=== PATIENT | female | born 1955 | race Caucasian/White ===

== ENCOUNTER 2022-03-25 13:05 | Emergency (ER) | payer MEDICARE ==
[~2022-03-25] VITALS: Ht 170.2 cm; Wt 80.0 kg
[2022-03-25] MEDS ORDERED: IV NORMAL SALINE 1000ML BAG 1,000 ML IV ONE (14:15)
[2022-03-25] MEDS ORDERED: FAMOTIDINE 20 MG/2 ML VIAL IVP ONE (14:15)
[2022-03-25] MEDS ORDERED: ONDANSETRON PF 4 MG/2 ML VIAL. IVP ONE (14:15)
[2022-03-25] MEDS ORDERED: fentaNYL PF VIAL 100 MCG/2 ML VIAL IV PRN (14:15)
[2022-03-25 14:48] LABS: BASO # 0.1 x10^3/uL (0.0-0.2); BASO % 1 % (0-3); EOS # 0.1 x10^3/uL (0.0-0.7); EOS % 1 % (0-3); HEMATOCRIT 43.5 % (36.0-47.0); HEMOGLOBIN 14.6 g/dL (12.0-15.5); LYMPH # 1.1 x10^3/uL (1.0-4.8); LYMPH % 19 % (24-48); MEAN CORPUSCULAR HEMOGLOBIN 32 pg (25-35); MEAN CORPUSCULAR HGB CONC 34 g/dL (31-37); MEAN CORPUSCULAR VOLUME 96 fL (79-100); MONO # 0.4 x10^3/uL (0.0-1.1); MONO % 8 % (0-9); NEUT # 4.2 x10^3/uL (1.8-7.7); NEUT % 71 % (31-73); PLATELET COUNT 300 x10^3/uL (140-400); RED BLOOD COUNT 4.52 x10^6/uL (3.50-5.40); RED CELL DISTRIBUTION WIDTH 14.3 % (11.5-14.5); WHITE BLOOD COUNT 5.9 x10^3/uL (4.0-11.0)
[2022-03-25 14:54] LABS: HYALINE CASTS, URINE FEW /HPF
[2022-03-25 14:54] LABS: CALCIUM 8.3 mg/dL (8.5-10.1); GFR 55.5; POTASSIUM 3.8 mmol/L (3.5-5.1)
[2022-03-25 14:55] LABS: BACTERIA,URINE 0 /HPF (0-FEW); WBC,URINE TNTC /HPF (0-4)
[2022-03-25 15:00] LABS: ALBUMIN 3.9 g/dL (3.4-5.0); ALBUMIN/GLOBULIN RATIO 1.1 (1.0-1.7); MAGNESIUM 1.9 mg/dL (1.8-2.4); TOTAL BILIRUBIN 0.3 mg/dL (0.2-1.0); TOTAL PROTEIN 7.5 g/dL (6.4-8.2)
[2022-03-25] MEDS ORDERED: cefTRIAXone IV Push 1 GM VIAL. IVP ONE (15:45)
[2022-03-25 15:52] VITALS: BP 116/65
--- NOTE | 2022-03-25 15:59 | RAD ---
CT ABDOMEN+PELVIS WO History: Right lower quadrant abdominal pain for weeks Comparison: None. Technique: CT abdomen pelvis without contrast. Findings: The lung bases are clear. The liver, gallbladder, pancreas, spleen, adrenal glands, and kidneys are u nremarkable. The stomach and small bowel are within normal limits. No evidence of small bowel obstruction. The roshan endix is not definitively identified. Flocculated dense material is present throughout the distal sma ll bowel and colon, likely ingested medication no colonic wall thickening or pericolonic inflammatory changes. The bladder is decompressed and unremarkable. Uterus and adnexa are unremarkable. No intra-abdominal free air or free fluid. There are shotty mesenteric lymph nodes without enlarged adenopathy. The unen hanced vasculature demonstrates mild atherosclerotic calcifications. Soft tissues are unremarkable. A dvanced degenerative changes in the lumbar spine with multilevel facet hypertrophy and mild anterolis thesis of L4 on L5. Multilevel degenerative disc space narrowing. Impression: 1. No acute findings in the abdomen and pelvis. ------ Exposure: One or more of the following individualized dose reduction techniques were utilized for thi s examination: 1. Automated exposure control 2. Adjustment of the mA and/or kV according to patient size 3. Use of iterative reconstruction technique. Electronically signed by: Karl Johnson MD (03/25/2022 2:42 PM) [id number]
[2022-03-25] MEDS ORDERED: CEPH500T PO (16:37)
[2022-03-25] MEDS ORDERED: DICY20TA PO (16:37)
--- NOTE | 2022-03-25 16:38 | PHYS DOC ---
Past Medical History Additional Past Medical Histor: covid; shinglfranko Past Surgical History: Appendectomy Additional Past Surgical Histo: partial thyroid; bilateral knee Smoking Status: Never Smoker Alcohol Use: Occasionally General Adult EDM: Chief Complaint: ABDOMINAL PAIN HPI: HPI: Patient is a 66 year old female with history of appendectomy presenting to the ED today complaining of lower abdominal cramping specifically on the right side as well as intermittent episodes of diarrhea for 2 months. Patient denies any fever. Denies any bloody stools. Denies any nausea, vomiting. Review of Systems: Review of Systems: Constitutional: Denies fever or chills. [] Eyes: Denies change in visual acuity. [] HENT: Denies nasal congestion or sore throat. [] Respiratory: Denies cough or shortness of breath. [] Cardiovascular: Denies chest pain or edema. [] GI: Reports lower abdominal cramping specifically on the right, diarrhea, d enies any nausea or vomiting : Denies dysuria. [] Musculoskeletal: Denies back pain or joint pain. [] Integument: Denies rash. [] Neurologic: Denies headache, focal weakness or sensory changes. [] Psychiatric: Denies depression or anxiety. [] Heart Score: C/O Chest Pain: N/A Risk Factors: Risk Factors: DM, Current or recent (<one month) smoker, HTN, HLP, family history of CAD, obesity. Risk Scores: Score 0 - 3: 2.5% MACE over next 6 weeks - Discharge Home Score 4 - 6: 20.3% MACE over next 6 weeks - Admit for Clinical Observation Score 7 - 10: 72.7% MACE over next 6 weeks - Early Invasive Strategies Current Medications: Current Medications Medications (Trade) Dose Ordered Sig/Rosanne Start Time Stop Time Status Last Admin Dose Admin Ceftriaxone Sodium (Rocephin) 1 gm 1X ONCE 03/25/22 15:45 03/25/22 15:47 DC 03/25/22 15:53 1 GM Famotidine (Pepcid Vial) 20 mg 1X ONCE 03/25/22 14:15 03/25/22 14:16 DC 03/25/22 14:37 20 MG Fentanyl Citrate (Fentanyl 2ml Vial) 50 mcg PRN Q15MIN PRN 03/25/22 14:15 03/26/22 14:14 03/25/22 14:38 50 MCG Ondansetron HCl (Zofran) 4 mg 1X ONCE 03/25/22 14:15 03/25/22 14:16 DC 03/25/22 14:37 4 MG Sodium Chloride 1,000 ml @ 1,000 mls/hr 1X ONCE 03/25/22 14:15 03/25/22 15:14 DC 03/25/22 14:37 1,000 MLS/HR Allergies: Allergies: Allergies Coded Allergies Type Severity Reaction Last Updated Verified No Known Drug Allergies 03/25/22 No Physical Exam: PE: Constitutional: Well developed, well nourished, no acute distress, non-toxic appearance. [] HENT: Normocephalic, atraumatic, bilateral external ears normal, oropharynx moist, no oral exudates, nose normal. [] Eyes: PERRLA, EOMI, conjunctiva normal, no discharge. [] Neck: Normal range of motion, no tenderness, supple, no stridor. [] Cardiovascular:Heart rate regular rhythm, no murmur [] Lungs & Thorax: Bilateral breath sounds clear to auscultation [] Abdomen: Bowel sounds normal, soft, no tenderness, no masses, no pulsatile masses. [] Skin: Warm, dry, no erythema, no rash. [] Back: No tenderness, no CVA tenderness. [] Extremities: No tenderness, no cyanosis, no clubbing, ROM intact, no edema. [] Neurologic: Alert and oriented X 3, normal motor function, normal sensory f unction, no focal deficits noted. [] Psychologic: Affect normal, judgement normal, mood normal. [] Current Patient Data: Labs: Laboratory Tests Test 03/25/22 14:21 03/25/22 14:30 Urine Collection Type Unknown Urine Color (Auto) Yellow Urine Turbidity Hazy Urine pH (Auto) 5.5 (<5.0-8.0) Urine Specific Hopkins 1.036 (1.000-1.030) Urine Protein (Auto) 30 mg/dL (Negative) Urine Glucose (Auto)(UA) Negative mg/dL (Negative) Urine Ketones (Auto) Trace mg/dL (Negative) Urine Blood (Auto) Negative (Negative) Urine Nitrite Negative (Negative) Urine Bilirubin (Auto) Negative (Negative) Urine Urobilinogen (Auto) 2 mg/dL (Normal) Urine Leukocyte Esterase (Auto) Large (Negative) Urine RBC 3-5 /HPF (0-2) Urine WBC Tntc /HPF (0-4) Urine Squamous Epithelial Cells Many /LPF Urine Bacteria 0 /HPF (0-FEW) Urine Hyaline Casts Few /HPF Urine Mucus Marked /LPF White Blood Count 5.9 x10^3/uL (4.0-11.0) Red Blood Count 4.52 x10^6/uL (3.50-5.40) Hemoglobin 14.6 g/dL (12.0-15.5) Hematocrit 43.5 % (36.0-47.0) Mean Corpuscular Volume 96 fL (79-100) Mean Corpuscular Hemoglobin 32 pg (25-35) Mean Corpuscular Hemoglobin Concent 34 g/dL (31-37) Red Cell Distribution Width 14.3 % (11.5-14.5) Platelet Count 300 x10^3/uL (140-400) Neutrophils (%) (Auto) 71 % (31-73) Lymphocytes (%) (Auto) 19 % (24-48) L Monocytes (%) (Auto) 8 % (0-9) Eosinophils (%) (Auto) 1 % (0-3) Basophils (%) (Auto) 1 % (0-3) Neutrophils # (Auto) 4.2 x10^3/uL (1.8-7.7) Lymphocytes # (Auto) 1.1 x10^3/uL (1.0-4.8) Monocytes # (Auto) 0.4 x10^3/uL (0.0-1.1) Eosinophils # (Auto) 0.1 x10^3/uL (0.0-0.7) Basophils # (Auto) 0.1 x10^3/uL (0.0-0.2) Sodium Level 140 mmol/L (136-145) Potassium Level 3.8 mmol/L (3.5-5.1) Chloride Level 103 mmol/L (98-107) Carbon Dioxide Level 29 mmol/L (21-32) Anion Gap 8 (6-14) Blood Urea Nitrogen 21 mg/dL (7-20) H Creatinine 1.0 mg/dL (0.6-1.0) Estimated GFR (Cockcroft-Gault) 55.5 BUN/Creatinine Ratio 21 (6-20) H Glucose Level 71 mg/dL (70-99) Calcium Level 8.3 mg/dL (8.5-10.1) L Magnesium Level 1.9 mg/dL (1.8-2.4) Total Bilirubin 0.3 mg/dL (0.2-1.0) Aspartate Amino Transferase (AST) 26 U/L (15-37) Alanine Aminotransferase (ALT) 31 U/L (14-59) Alkaline Phosphatase 85 U/L (46-116) Total Protein 7.5 g/dL (6.4-8.2) Albumin 3.9 g/dL (3.4-5.0) Albumin/Globulin Ratio 1.1 (1.0-1.7) Lipase 195 U/L (73-393) Laboratory Tests 03/25/22 14:30 Laboratory Tests 03/25/22 14:30 Vital Signs: Vital Signs Date Time Temp Pulse Resp B/P (MAP) Pulse Ox O2 Delivery O2 Flow Rate FiO2 03/25/22 15:53 16 95 03/25/22 15:52 66 116/65 (82) Room Air 03/25/22 14:00 97.8 97.8 EKG: EKG: [] Radiology/Procedures: Radiology/Procedures: []PROCEDURE: CT ABDOMEN PELVIS WO CONTRAST CT ABDOMEN+PELVIS WO History: Right lower quadrant abdominal pain for weeks Comparison: None. Technique: CT abdomen pelvis without contrast. Findings: The lung bases are clear. The liver, gallbladder, pancreas, spleen, adrenal glands, and kidneys are unremarkable. The stomach and small bowel are within normal limits. No evidence of small bowel obstruction. The appendix is not definitively identified. Flocculated dense material is present throughout the distal small bowel and colon, likely ingested medication no colonic wall thickening or pericolonic inflammatory changes. The bladder is decompressed and unremarkable. Uterus and adnexa are unremarkable. No intra-abdominal free air or free fluid. There are shotty mesenteric lymph nodes without enlarged adenopathy. The unenhanced vasculature demonstrates mild atherosclerotic calcifications. Soft tissues are unremarkable. Advanced degenerative changes in the lumbar spine with multilevel facet hypertrophy and mild anterolisthesis of L4 on L5. Multilevel degenerative disc space narrowing. Impression: 1. No acute findings in the abdomen and pelvis. ------ Exposure: One or more of the following individualized dose reduction techniques were utilized for this examination: 1. Automated exposure control 2. Adjustment of the mA and/or kV according to patient size 3. Use of iterative reconstruction technique. Electronically signed by: Karl Johnson MD (03/25/2022 2:42 PM) [id number] DICTATED and SIGNED BY: KARL JOHNSON MD DATE: 03/25/22 1426 Course & Med Decision Making: Course & Med Decision Making Pertinent Labs and Imaging studies reviewed. (See chart for details) This is a 66-year-old female patient presenting to the ED today with lower abdominal cramping, diarrhea, symptoms for 2 months. Normal WBC, normal hemoglobin and hematocrit. CMP with no acute findings. CT of the abdomen and pelvis is negative for any acute findings. Urine positive for UTI, given Rocephin IV in the ED. Discharged on cephalexin. Follow-up with PCP in 1 to 2 weeks Charisma Disclaimer: Dragon Disclaimer: This electronic medical record was generated, in whole or in part, using a voice recognition dictation system. Departure Departure Impression: Primary Impression: Diarrhea Qualified Codes: R19.7 - Diarrhea, unspecified Additional Impressions: UTI (urinary tract infection) Qualified Codes: N30.00 - Acute cystitis without hematuria Abdominal cramping Disposition: HOME / SELF CARE / HOMELESS Condition: STABLE Referrals: RE ORO (PCP) follow up in one week Patient Instructions: Abdominal Pain (Nonspecific), Diarrhea, Urinary Tract Infection Additional Instructions: You have urinary tract infection. Your CT of the abdomen and pelvis is negative for any acute findings, your lab work is negative for any acute findings. Please take the prescribed antibiotics until completed. Follow-up with your doctor in 1 to 2 weeks. Come back to the ED at any point symptoms worsen Scripts Dicyclomine Hcl (DICYCLOMINE HCL) 20 Mg Tablet 1 TAB PO TID, #21 TAB 1 Refill Prov: LAURO MCLAIN [employer] 03/25/22 Cephalexin (CEPHALEXIN) 500 Mg Tablet 1 TAB PO BID, #14 TAB Prov: LAURO MCLAIN [employer] 03/25/22 LAURO MCLAIN APRN March 25, 2022 16:38
== END 2022-03-25 16:41 | disposition home or self-care (01) ==
LOC: ER 13:05
DX: N30.00 Acute cystitis without hematuria (principal); R19.7 Diarrhea, unspecified; Z90.89 Acquired absence of other organs
CPT/HCPCS: 36415; 74176; 80053; 81001; 83690; 83735; 85025; 87086; 96361; 96374; 96375; 99284; J0696; J2405; J3010; J3490; J7030